=== PATIENT | female | born 1965 | race African-American/Black ===

== ENCOUNTER 2018-01-12 10:10 | Emergency (ER) | payer BC ==
[2018-01-12] MEDS ORDERED: cefTRIAXone\\ROCEPHIN 1 GM VIAL ONE (12:59)
--- NOTE | 2018-01-12 13:52 | RAD ---
PA AND LATERAL VIEWS OF [facility]: HISTORY: Cough. FINDINGS: The heart size is normal. There is a mild infiltrate in the left lower lung. No pneumothoraces or p leural effusions are seen. IMPRESSION: Findings suspicious for pneumonia. POS: [facility]
== END 2018-01-12 13:18 | disposition home or self-care (01) ==
LOC: MADERS 10:10
DX: J18.9 Pneumonia, unspecified organism (principal); I10 Essential (primary) hypertension; Z79.899 Other long term (current) drug therapy
CPT/HCPCS: 36415; 71046; 87081; 87430; 87804; 96372; J0696